=== PATIENT | female | born 1965 | race Asian ===

== ENCOUNTER 2016-11-03 20:01 | Emergency (ER) | payer MEDICAID ==
[~2016-11-03] VITALS: Ht 160 cm; Wt 83.9 kg
[~2016-11-03 20:01] MED LIST: ADVAIR 100-501 EACH INH; ALBUTEROL SULF8.5 GM INH; AMITRIPTYLINE H25 MG ORAL; AMOXICILLIN500 MG ORAL; AZITHROMYCIN250 MG ORAL; BACTRIM DS TAB1 EAC1 ORAL; BENADRYL25 M3 PO; BENADRYL25 MG ORAL; CLINDAMYCIN HC300 MG ORAL; CYCLOBENZAPRINE10 MG ORAL; DEXAMETHASONE2 MG PO; DOXYCYCLINE MO100 MG PO; FLONASE1 SPRAYS; GLUCOTROL5 MG ORAL; HYDROCODON-ACE1 EA15 ORAL; IBUPROFEN600 MG ORAL; KEFLEX500 MG ORAL; KENALOG 0.1% CR15 GM APPLIC; LOPID600 MG ORAL; METFORMIN HCL500 M1 ORAL; NORCO 10/3251 EA ORAL; NORCO 5-325 TA1 EAC1 ORAL; NORCO 5-325 TA1 EACH ORAL; PREDNISONE20 MG ORAL; PROAIR HFA8.5 GM INH; RANITIDINE HCL150 MG ORAL; ROBITUSSIN COU118 M4 PO; TESSALON PERLE100 M2 ORAL; VALIUM5 MG ORAL; VIBRAMYCIN100 MG ORAL; VICODIN 5-5001 EACH ORAL; VICODIN ES 7.51 EACH ORAL
[2016-11-03 20:25] VITALS: BP 157/94
[2016-11-03] MEDS ORDERED: Ketorolac 30mg Inj IM ONE (21:00)
[2016-11-03 21:28] VITALS: BP 132/89
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
== END 2016-11-03 21:29 | disposition home or self-care (01) ==
LOC: EMR 20:47
DX: G89.21 Chronic pain due to trauma (principal); R51 Headache; E11.9 Type 2 diabetes mellitus without complications
CPT/HCPCS: 96372; 99283; J1885

== ENCOUNTER 2017-03-09 20:59 | Emergency (ER) | payer MEDICAID ==
[~2017-03-09] VITALS: Ht 160 cm; Wt 83.9 kg
[2017-03-09 21:15] VITALS: BP 131/74
--- NOTE | 2017-03-09 21:21 | Emergency Room Report ---
History of Present Illness General Chief Complaint: Sore Throat Source: Patient Present Illness HPI Is a 51-year-old female who presents with chief complaint of sore throat. Onset for last 2 to 3 days. She said that her niece had strep throat. She also has congestion and runny nose. Also has hoarseness of her voice. No fever or chills no nausea vomiting. She has 3 leftover pills of amoxicillin and she took them for the last 2 days. No other complaint. Pain is 7/10. Worse with swallowing. Allergies: Coded Allergies: AMITRIPTYLINE (Verified Allergy, Mild, 05/29/14) SWELLING OF LIPS Patient History Past Medical History: see triage record, old chart reviewed Past Surgical History: other Pertinent Family History: none Social History: Reports: smoking Last Menstrual Period: 02/10/17 Now: No Immunizations: other Reviewed Nursing Documentation: PMH: Agreed, PSxH: Agreed Nursing Documentation-PMH Past Medical History: No History, Except For Hx Hypertension: No Hx Pacemaker: No Hx Asthma: No Hx COPD: No Hx Diabetes: Yes Hx Cancer: No Hx Gastrointestinal Problems: No Hx Dialysis: No Hx Neurological Problems: No Hx Cerebrovascular Accident: No Hx Seizures: No Review of Systems Eye: Reports: nose congestion, Denies: blurred vision, eye pain ENT: Reports: throat pain, Denies: ear pain, nose congestion, throat swelling Respiratory: Denies: cough, shortness of breath Cardiovascular: Denies: chest pain, palpitations Gastrointestinal: Denies: abdominal pain, diarrhea, nausea, vomiting Musculoskeletal: Denies: back pain, joint pain Skin: Denies: rash Neurological: Denies: headache, numbness Endocrine: Denies: increased thirst, increased urine Hematologic/Lymphatic: Denies: easy bruising All Other Systems: negative except mentioned in HPI Physical Exam Vital Signs Date Time Temp Pulse Resp B/P Pulse Ox O2 Delivery O2 Flow Rate FiO2 03/09/17 21:03 98.2 96 17 131/74 100 Room Air vitals normal Sp02 EP Interpretation: reviewed, normal General Appearance: well appearing, no apparent distress, alert Head: normocephalic, atraumatic Eyes: bilateral eye EOMI, bilateral eye PERRL ENT: hearing grossly normal, normal pharynx Neck: full range of motion, supple, no meningismus Respiratory: chest non-tender, lungs clear, normal breath sounds Cardiovascular #1: regular rate, rhythm, no murmur Gastrointestinal: normal bowel sounds, non tender, no mass, no organomegaly, no bruit, non-distended Musculoskeletal: back normal, gait/station normal, normal range of motion Psychiatric: mood/affect normal Skin: warm/dry Medical Decision Making Diagnostic Impression: Primary Impression: Pharyngitis ER Course Patient present with a viral illness. No evidence of strep throat. No evidence of retropharyngeal abscess, peritonsillar abscess or Paramjit angina. She has no trismus. We'll discharge home. Last Vital Signs Date Time Temp Pulse Resp B/P Pulse Ox O2 Delivery O2 Flow Rate FiO2 03/09/17 21:15 98.2 17 131/74 100 Room Air 03/09/17 21:03 96 Status: unchanged Disposition: HOME, SELF-CARE Condition: Stable Patient Instructions: Sore Throat Additional Instructions: followup with your DrMagdalena in 7 days. Return if worse. DIANA DUARTE M.D. Mar 09, 2017 21:21
[2017-03-09 21:25] VITALS: BP 131/74
== END 2017-03-09 21:25 | disposition home or self-care (01) ==
LOC: EMR 21:25
DX: J02.9 Acute pharyngitis, unspecified (principal); E11.9 Type 2 diabetes mellitus without complications; Z88.8 Allergy status to other drugs, medicaments and biological substances
CPT/HCPCS: 99282

== ENCOUNTER 2017-06-19 23:27 | Emergency (ER) | payer MEDICAID ==
[~2017-06-19] VITALS: Ht 160 cm; Wt 8.2 kg
[2017-06-20 00:56] VITALS: BP 152/83
[2017-06-20] MEDS ORDERED: AMOXICILLIN500 MG ORAL (01:05)
[2017-06-20 01:12] VITALS: BP 148/82
--- NOTE | 2017-06-20 03:12 | Emergency Room Report ---
History of Present Illness General Chief Complaint: Sore Throat Source: Patient Present Illness HPI 51-year-old female presents to ED today of sore throat and bodyaches x3 days. Pain is throbbing, 8/10, nonradiating. Worse with swallowing. States that many people at her work have the same symptoms. Denies fevers or chills. Denies chest pain shortness of breath. No other aggravating relieving factors. Denies any other associated symptoms Allergies: Coded Allergies: AMITRIPTYLINE (Verified Allergy, Mild, 05/29/14) SWELLING OF LIPS Patient History Past Medical History: DM Past Surgical History: none Pertinent Family History: none Social History: Denies: smoking, alcohol use, drug use Now: No Immunizations: UTD Reviewed Nursing Documentation: PMH: Agreed, PSxH: Agreed Nursing Documentation-PMH Hx Hypertension: No Hx Pacemaker: No Hx Asthma: No Hx COPD: No Hx Diabetes: Yes Hx Cancer: No Hx Gastrointestinal Problems: No Hx Dialysis: No Hx Neurological Problems: No Hx Cerebrovascular Accident: No Hx Seizures: No Review of Systems All Other Systems: negative except mentioned in HPI Physical Exam Vital Signs Date Time Temp Pulse Resp B/P (MAP) Pulse Ox O2 Delivery O2 Flow Rate FiO2 06/20/17 00:19 98.4 73 16 152/83 97 Room Air Sp02 EP Interpretation: reviewed, normal General Appearance: no apparent distress, alert, GCS 15, non-toxic Head: normocephalic, atraumatic Eyes: bilateral eye normal inspection, bilateral eye PERRL ENT: hearing grossly normal, no angioedema, normal voice, TMs + canals normal, pharyngeal erythema Neck: full range of motion, supple/symm/no masses Respiratory: chest non-tender, lungs clear, normal breath sounds, speaking full sentences Cardiovascular #1: regular rate, rhythm, no edema Cardiovascular #2: 2+ carotid (R), 2+ carotid (L), 2+ radial (R), 2+ radial (L) , 2+ dorsalis pedis (R), 2+ dorsalis pedis (L) Gastrointestinal: normal bowel sounds, non tender, soft, non-distended, no guarding, no rebound Rectal: deferred Genitourinary: normal inspection, no CVA tenderness Musculoskeletal: back normal, gait/station normal, normal range of motion, non- tender Neurologic: alert, oriented x3, responsive, motor strength/tone normal, sensory intact, speech normal Psychiatric: judgement/insight normal, memory normal, mood/affect normal, no suicidal/homicidal ideation Reflexes: 3+ bicep (R), 3+ bicep (L), 3+ tricep (R), 3+ tricep (L), 3+ knee (R) , 3+ knee (L) Skin: normal color, no rash, warm/dry, well hydrated Lymphatic: no adenopathy Medical Decision Making Diagnostic Impression: Primary Impression: Pharyngitis Qualified Codes: J02.9 - Acute pharyngitis, unspecified ER Course Hospital Course 51-year-old female presents to ED complaining of sore throat Differential diagnoses include: URI, pharyngitis, otitis media Clinical course Patient placed on stretcher. After initial history, physical exam reveals a middle aged female in no acute distress. Bilateral TM unremarkable. There is pharyngeal erythema and multiple papules. w/o tonsillar exudates. No lymphadenopathy. Clinical findings consistent with pharyngitis. Reassurance given to parents Diagnosis - pharyngitis Stable and discharged home with prescriptions for amoxicillin. Instructed to followup with PMD. return to ED if symptoms recur or worsen Last Vital Signs Date Time Temp Pulse Resp B/P (MAP) Pulse Ox O2 Delivery O2 Flow Rate FiO2 06/20/17 01:12 18 148/82 98 Room Air 06/20/17 00:56 98.4 73 Status: improved Disposition: HOME, SELF-CARE Condition: Stable Scripts Amoxicillin* (AMOXIL*) 500 Mg Capsule 500 MG ORAL THREE TIMES A DAY, #21 CAP Prov: PASHA ZHANG M.D. 06/20/17 Referrals: [facility] (PCP) Patient Instructions: Pharyngitis, Isdr-ds-Opht PASHA ZHANG M.D. Jun 20, 2017 03:12
== END 2017-06-20 01:10 | disposition home or self-care (01) ==
LOC: EMR 23:51
DX: J02.9 Acute pharyngitis, unspecified (principal); E11.9 Type 2 diabetes mellitus without complications
CPT/HCPCS: 99283

== ENCOUNTER 2017-07-25 13:36 | Emergency (ER) | payer MEDICAID ==
[~2017-07-25] VITALS: Ht 160 cm; Wt 84.8 kg
[2017-07-25 13:38] VITALS: BP 137/82
[2017-07-25] MEDS ORDERED: Albuterol ud Inhalation HHN ONE (14:00)
[2017-07-25] MEDS ORDERED: Ipratropium 0.02% Inh Soln 2.5ml UD HHN ONE (14:00)
[2017-07-25] MEDS ORDERED: ZITHROMAX250 MG ORAL (15:19)
[2017-07-25] MEDS ORDERED: PREDNISONE20 MG ORAL (15:19)
[2017-07-25] MEDS ORDERED: ROBITUSSIN COU237 M1 PO (15:19)
[2017-07-25 15:30] VITALS: BP 137/82
--- NOTE | 2017-07-25 17:17 | Emergency Room Report ---
History of Present Illness General Chief Complaint: General Complaint Source: Patient Present Illness [facility] The patient is a 51-year-old female presenting for productive cough, subjective fevers, and a feeling of chest tightness for the past 2 weeks. She admits to a history of smoking and chronic bronchitis. She denies any recent travel or sick contacts. She denies any current pain. She states that she has albuterol at home which has not been helping. She denies any other symptoms including N, V, CP, dizziness, rash Allergies: Coded Allergies: AMITRIPTYLINE (Verified Allergy, Mild, 05/29/14) SWELLING OF LIPS Patient History Past Medical History: see triage record Pertinent Family History: none Last Menstrual Period: 07/23/17 Now: No Reviewed Nursing Documentation: PMH: Agreed, PSxH: Agreed Nursing Documentation-PMH Hx Hypertension: No Hx Pacemaker: No Hx Asthma: No Hx COPD: No Hx Diabetes: Yes Hx Cancer: No Hx Gastrointestinal Problems: No Hx Dialysis: No Hx Cerebrovascular Accident: No Hx Seizures: No Review of Systems All Other Systems: negative except mentioned in HPI Physical Exam Vital Signs Date Time Temp Pulse Resp B/P (MAP) Pulse Ox O2 Delivery O2 Flow Rate FiO2 07/25/17 13:38 98.2 71 17 137/82 97 Room Air 07/25/17 14:39 21 Sp02 EP Interpretation: reviewed, normal General Appearance: no apparent distress, alert, GCS 15, non-toxic Head: normocephalic, atraumatic Eyes: bilateral eye normal inspection, bilateral eye PERRL ENT: hearing grossly normal, normal pharynx, no angioedema, normal voice Neck: full range of motion, supple/symm/no masses Respiratory: chest non-tender, lungs clear, normal breath sounds, speaking full sentences, wheezing - bilat diffuse Cardiovascular #1: regular rate, rhythm, no edema Musculoskeletal: back normal, gait/station normal, normal range of motion, non- tender Neurologic: alert, oriented x3, responsive, motor strength/tone normal, sensory intact, speech normal Psychiatric: judgement/insight normal, memory normal, mood/affect normal, no suicidal/homicidal ideation Skin: normal color, no rash, warm/dry, well hydrated Lymphatic: no adenopathy Medical Decision Making PA Attestation Dr. Steel is my supervising physician. Patient management was discussed with my supervising physician Diagnostic Impression: Primary Impression: Atypical pneumonia ER Course The patient is a 51-year-old female presenting for productive cough, subjective fevers, and a feeling of chest tightness for the past 2 weeks Differential diagnoses considered but not limited to: Asthma exacerbation, bronchitis, pneumonia Physical exam: Vitals within normal limits. No apparent distress HEENT exam is unremarkable Lungs: Diffuse wheezing bilat. Chest is nontender. No respiratory distress. No accessory muscle use. The patient was given a breathing treatment and is feeling much better. Lungs sounds have improved CXR unremarkable Patient is discharged home with a prescription for steroids, cough medication, and abx and will followup with PMD. ER precautions are given the patient will be treated with antibiotics due to COPD with subjective fevers and length of symptoms. Chest X-Ray Diagnostic Results Chest X-Ray Diagnostic Results : Chest X-Ray Ordered: Yes # of Views/Limited/Complete: 1 View Indication: Other - cough EP Interpretation: Yes PA Xray: Interpretation reviewed, by supervising MD, and agrees with findings. Interpretation: no consolidation, no effusion, no pneumothorax, no acute cardiopulmonary disease Impression: No acute disease Electronically Signed by: Micheal Saavedra PA-C Last Vital Signs Date Time Temp Pulse Resp B/P (MAP) Pulse Ox O2 Delivery O2 Flow Rate FiO2 07/25/17 15:30 98.2 18 137/82 100 Room Air 21 07/25/17 14:59 90 Status: improved Disposition: HOME, SELF-CARE Condition: Improved Scripts Prednisone* (PREDNISONE*) 20 Mg Tablet 20 MG ORAL DAILY, #5 TAB 0 Refills Prov: TERZIAN,MICHEAL P.A. 07/25/17 Guaifenesin/Dextromethorphan (ROBITUSSIN COUGH-CHEST DM LIQ) 237 Ml Liquid 10 ML PO Q4HR, #237 ML Prov: TERZIANMICHEAL P.A. 07/25/17 Azithromycin* (ZITHROMAX*) 250 Mg Tablet 250 MG ORAL DAILY, #6 TAB 0 Refills Take two tables once daily for 1 day, then one tablet once daily for 4 days. Prov: TERZIANMICHEAL P.A. 07/25/17 Patient Instructions: Chronic Obstructive Pulmonary Disease Additional Instructions: I discussed my findings with the patient. All questions and concerns have been answered. Treatment and medication compliance have been addressed. I advised the patient that they need to follow up with PMD in 3-5 days. Return to ED if pain remains or worsens, cough worsens or remains, you notice blood in your sputum, you notice wheezing, you experience a fever, or if needed for any reason. Patient verbalized understanding of discharge instructions. MICHEAL SAAVEDRA Jul 25, 2017 17:17
== END 2017-07-25 15:30 | disposition home or self-care (01) ==
LOC: EMR 13:56
DX: J18.9 Pneumonia, unspecified organism (principal); E11.9 Type 2 diabetes mellitus without complications; Z88.8 Allergy status to other drugs, medicaments and biological substances
CPT/HCPCS: 94640; 94664; 99284

== ENCOUNTER 2017-11-07 21:29 | Emergency (ER) | payer MEDICAID ==
[~2017-11-07] VITALS: Ht 160 cm; Wt 82.6 kg
[~2017-11-07 21:29] MED LIST changes: +ROBITUSSIN COU237 M1 PO; +ZITHROMAX250 MG ORAL
[2017-11-07 22:00] VITALS: BP 137/89
[2017-11-07] MEDS ORDERED: Norco 5mg/325mg tab ORAL ONE (22:45)
[2017-11-07] MEDS ORDERED: HYDROCODON-ACE1 EA15 ORAL (23:38)
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
[2017-11-07 23:50] VITALS: BP 137/89
--- NOTE | 2017-11-08 11:42 | Diagnostic Imaging Report ---
Indication: Dyspnea. Trauma Comparison: 01/10/2014 2 views of the chest obtained. Findings: Cardiomediastinal silhouette and pulmonary vascularity are within normal limits for age. The diaphragmatic contour is smooth and costophrenic angles are sharp. No pleural effusions are identified. The bones are osteopenic. Impression: No acute disease
== END 2017-11-07 23:50 | disposition home or self-care (01) ==
LOC: EMR 22:20
DX: S20.219A Contusion of unspecified front wall of thorax, initial encounter (principal); S16.1XXA Strain of muscle, fascia and tendon at neck level, initial encounter; M54.5 Low back pain; V43.52XA Car driver injured in collision with other type car in traffic accident, initial encounter; Y92.410 Unspecified street and highway as the place of occurrence of the external cause; E11.9 Type 2 diabetes mellitus without complications; Z88.8 Allergy status to other drugs, medicaments and biological substances
CPT/HCPCS: 71046; 99283

== ENCOUNTER 2018-03-10 18:52 | Emergency (ER) | payer MEDICAID ==
[~2018-03-10] VITALS: Ht 160 cm; Wt 83.9 kg
[2018-03-10 19:30] VITALS: BP 133/89
[2018-03-10] MEDS ORDERED: IBUPROFEN600 MG ORAL (21:02)
[2018-03-10] MEDS ORDERED: ROBAXIN-750750 MG PO (21:02)
[2018-03-10 21:05] VITALS: BP 133/89
--- NOTE | 2018-03-10 22:44 | Emergency Room Report ---
History of Present Illness General Chief Complaint: Pain Source: Patient Present Illness HPI 52-year-old female presents ED complaining of throat pain and neck pain 3 days. Pain is throbbing, 8 out of 10, nonradiating. Denies any fevers or chills. Nose runny nose and cough. Denies earache. Denies headache or neck stiffness. No other aggravating relieving factors. Denies any other associated symptoms Allergies: Coded Allergies: AMITRIPTYLINE (Verified Allergy, Mild, 05/29/14) SWELLING OF LIPS Patient History Past Medical History: DM Past Surgical History: none Pertinent Family History: none Social History: Denies: smoking, alcohol use, drug use Now: No Immunizations: UTD Reviewed Nursing Documentation: PMH: Agreed; PSxH: Agreed Nursing Documentation-PMH Past Medical History: No History, Except For Hx Hypertension: No Hx Pacemaker: No Hx Asthma: No Hx COPD: No Hx Diabetes: Yes Hx Cancer: No Hx Gastrointestinal Problems: No Hx Dialysis: No Hx Cerebrovascular Accident: No Hx Seizures: No Review of Systems All Other Systems: negative except mentioned in HPI Physical Exam Vital Signs Date Time Temp Pulse Resp B/P (MAP) Pulse Ox O2 Delivery O2 Flow Rate FiO2 03/10/18 19:02 98.3 70 20 133/89 96 Room Air 98.2 Sp02 EP Interpretation: reviewed, normal General Appearance: no apparent distress, alert, GCS 15, non-toxic Head: normocephalic Eyes: bilateral eye normal inspection, bilateral eye PERRL ENT: hearing grossly normal, normal pharynx, no angioedema, normal voice, TMs + canals normal Neck: normal inspection, no bony tend, tender lateral Respiratory: normal inspection Cardiovascular #1: normal inspection Gastrointestinal: normal inspection Rectal: deferred Genitourinary: no CVA tenderness Musculoskeletal: normal inspection Neurologic: alert, oriented x3, responsive, motor strength/tone normal, sensory intact, speech normal Psychiatric: normal inspection Skin: normal inspection Lymphatic: normal inspection Medical Decision Making Diagnostic Impression: Primary Impression: Neck strain Qualified Codes: S16.1XXA - Strain of muscle, fascia and tendon at neck level , initial encounter Additional Impression: Pharyngitis ER Course Hospital Course 52-year-old female presents to ED complaining of sore throat + neck pain Differential diagnoses include: URI, pharyngitis, otitis media Clinical course Patient placed on stretcher. After initial history, physical exam reveals a female in no acute distress. Bilateral TM unremarkable. There is minimal pharyngeal erythema w/o tonsillar exudates. No lymphadenopathy. No C-spine tenderness. There is some paraspinal tenderness to the neck. Consistent with muscle strain Clinical findings consistent with pharyngitis. likely viral. no abx indicated Diagnosis - pharyngitis, neck strain Stable and discharged home with prescriptions for motrin, robaxin. Instructed to followup with PMD. return to ED if symptoms recur or worsen Last Vital Signs Date Time Temp Pulse Resp B/P (MAP) Pulse Ox O2 Delivery O2 Flow Rate FiO2 03/10/18 21:05 70 20 133/89 96 Room Air 03/10/18 19:30 98.2 98.2 Status: improved Disposition: HOME, SELF-CARE Condition: Stable Scripts Methocarbamol* (ROBAXIN-750*) 750 Mg Tablet 750 MG PO TID, #21 TAB 0 Refills Prov: Kerwin Steel MD 03/10/18 Ibuprofen* (MOTRIN*) 600 Mg Tablet 600 MG ORAL Q8H PRN for For Pain, #30 TAB 0 Refills Prov: Kerwin Steel MD 03/10/18 Patient Instructions: Cervical Strain and Sprain With Rehab-[facility] Kerwin Steel MD Mar 10, 2018 22:44
== END 2018-03-10 21:05 | disposition home or self-care (01) ==
LOC: EMR 21:00
DX: S16.1XXA Strain of muscle, fascia and tendon at neck level, initial encounter (principal); X58.XXXA Exposure to other specified factors, initial encounter; Y92.9 Unspecified place or not applicable; J02.9 Acute pharyngitis, unspecified; E11.9 Type 2 diabetes mellitus without complications; Z88.1 Allergy status to other antibiotic agents
CPT/HCPCS: 99284

== ENCOUNTER 2018-03-28 06:25 | Emergency (ER) | payer MEDICAID ==
[~2018-03-28] VITALS: Ht 160 cm; Wt 83.9 kg
[~2018-03-28 06:25] MED LIST changes: +ROBAXIN-750750 MG PO
[2018-03-28 06:40] VITALS: BP 142/99
[2018-03-28] MEDS ORDERED: Ketorolac 30mg Inj IM ONE (07:00)
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
[2018-03-28] MEDS ORDERED: NORCO 5-325 TA1 EACH ORAL (07:57)
[2018-03-28 08:01] VITALS: BP 142/99
--- NOTE | 2018-03-28 11:03 | Diagnostic Imaging Report ---
EXAM: XR Left Shoulder Complete, 2 or More Views CLINICAL HISTORY: PAIN TECHNIQUE: Two or more views of the left shoulder. COMPARISON: No relevant prior studies available. FINDINGS: Bones/joints: No visible acute displaced fracture or dislocation. The left glenohumeral and acromioclavicular joints appear within normal limits. Coracoclavicular and subacromial spaces appear unremarkable. Soft tissues: Unremarkable. No radiodense foreign bodies. No soft tissue gas lucencies. IMPRESSION: No acute findings.
--- NOTE | 2018-03-29 13:16 | Diagnostic Imaging Report ---
Indication: Pain Technique: XRAY C Spine 2-3v Comparison: None Findings: There is mild straightening of the cervical lordosis. No evidence suggest spondylolisthesis. No abnormal cervical curvature on frontal view. The anterior and lateral lateral odontoid intervals within normal limits. No evidence to suggest dens fracture. Vertebral body heights are maintained; is no evidence of compression fracture. There is multilevel degenerative change of the cervical spine manifested by disc space narrowing, endplate sclerosis, osteophyte formation and facet arthropathy. These findings are most pronounced at C5-C6 and C6-C7. No prevertebral soft tissue abnormality is appreciated. Imaged lung apices are grossly clear. No radiopaque foreign body identified. IMPRESSION: No acute fracture. Degenerative change, most pronounced in the lower cervical spine. Consider further evaluation with MRI as clinically indicated.
--- NOTE | 2018-03-30 00:39 | Cardiology Report ---
APPROVED REPORT EKG Measurement Heart [id number] Sinus rhythm Normal ECG
== END 2018-03-28 08:03 | disposition home or self-care (01) ==
LOC: EMR 06:55
DX: M54.12 Radiculopathy, cervical region (principal); S46.912A Strain of unspecified muscle, fascia and tendon at shoulder and upper arm level, left arm, initial encounter; X58.XXXA Exposure to other specified factors, initial encounter; Y92.9 Unspecified place or not applicable; E11.9 Type 2 diabetes mellitus without complications; Z88.8 Allergy status to other drugs, medicaments and biological substances
CPT/HCPCS: 72040; 73030; 93005; 96372; 99284; J1885

== ENCOUNTER 2018-07-21 23:46 | Emergency (ER) | payer MEDICAID ==
[~2018-07-21] VITALS: Ht 160 cm; Wt 83.9 kg
[2018-07-22] VITALS: BP 124/90
[2018-07-22] MEDS ORDERED: IBUPROFEN600 MG ORAL (00:27)
--- NOTE | 2018-07-22 00:27 | Emergency Room Report ---
History of Present Illness General Chief Complaint: Pain Source: Patient Present Illness HPI Is a 52-year-old female with a history of diabetes. She presents with chief complaint bilateral feet pain, right greater than left. Onset for last couple weeks. Worse with standing. She stands at work constantly. Lots a walking. No trauma. Pain is throbbing in nature. Better with rest. Pain is 8 out of 10. No fever or chills. No drainage. No other complaint. Allergies: Coded Allergies: AMITRIPTYLINE (Verified Allergy, Mild, 05/29/14) SWELLING OF LIPS Patient History Past Medical History: see triage record, old chart reviewed Past Surgical History: other Pertinent Family History: none Social History: Denies: smoking Last Menstrual Period: 07/15/2018 Now: No : 4 Para: 3 Immunizations: other Reviewed Nursing Documentation: PMH: Agreed; PSxH: Agreed Nursing Documentation-PMH Past Medical History: No History, Except For Hx Hypertension: No Hx Pacemaker: No Hx Asthma: No Hx COPD: No Hx Diabetes: Yes Hx Cancer: No Hx Gastrointestinal Problems: No Hx Dialysis: No Hx Cerebrovascular Accident: No Hx Seizures: No Review of Systems Eye: Denies: eye pain, blurred vision ENT: Denies: ear pain, nose congestion, throat swelling Respiratory: Denies: cough, shortness of breath Cardiovascular: Denies: chest pain, palpitations Gastrointestinal: Denies: abdominal pain, diarrhea, nausea, vomiting Musculoskeletal: Reports: muscle pain; Denies: back pain, joint pain Skin: Denies: rash Neurological: Denies: headache, numbness Endocrine: Denies: increased thirst, increased urine Hematologic/Lymphatic: Denies: easy bruising All Other Systems: negative except mentioned in HPI Physical Exam Vital Signs Date Time Temp Pulse Resp B/P (MAP) Pulse Ox O2 Delivery O2 Flow Rate FiO2 07/21/18 23:53 98.1 83 14 124/90 97 Room Air vitals normal Sp02 EP Interpretation: reviewed, normal General Appearance: well appearing, no apparent distress, alert Head: normocephalic, atraumatic Eyes: bilateral eye PERRL, bilateral eye EOMI ENT: hearing grossly normal, normal pharynx Neck: full range of motion, supple, no meningismus Respiratory: chest non-tender, lungs clear, normal breath sounds Cardiovascular #1: regular rate, rhythm, no murmur Gastrointestinal: normal bowel sounds, non tender, no mass, no organomegaly, no bruit, non-distended Musculoskeletal: back normal, gait/station normal, normal range of motion, tender - Mild tenderness to the sole of both feet. Psychiatric: mood/affect normal Skin: warm/dry Medical Decision Making Diagnostic Impression: Primary Impression: Plantar fasciitis, bilateral ER Course Patient with bilateral plantar fasciitis. No evidence of septic joint or infection. We'll discharge home. Last Vital Signs Date Time Temp Pulse Resp B/P (MAP) Pulse Ox O2 Delivery O2 Flow Rate FiO2 07/21/18 23:53 98.1 83 14 124/90 97 Room Air Status: unchanged Disposition: HOME, SELF-CARE Condition: Stable Scripts Ibuprofen* (MOTRIN*) 600 Mg Tablet 600 MG ORAL THREE TIMES A DAY, #30 TAB 0 Refills Prov: Yovany Parada MD 07/22/18 Additional Instructions: Elevate feet. Follow-up with your doctor in 7 days. Return if worse. Yovany Parada MD Jul 22, 2018 00:27
[2018-07-22 00:40] VITALS: BP 136/86
== END 2018-07-22 00:36 | disposition home or self-care (01) ==
LOC: EMR 23:59
DX: M72.2 Plantar fascial fibromatosis (principal); E11.9 Type 2 diabetes mellitus without complications; Z88.1 Allergy status to other antibiotic agents
CPT/HCPCS: 99282

== ENCOUNTER 2018-11-08 10:49 | Emergency (ER) | payer MEDICAID ==
[~2018-11-08] VITALS: Ht 154.9 cm; Wt 72.6 kg
--- NOTE | 2018-11-08 10:59 | NUR ---
ED Nurse Note: Pt fell on ground level 2 days ago while carrying heavy stuffs, no LOC, no head trauma. Pain 10/10 pooja. AOx4, VSS. Will cont to monitor.
[2018-11-08] MEDS ORDERED: NKM (11:00)
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
[2018-11-08] MEDS ORDERED: CYCLOBENZAPRINE10 MG ORAL (11:25)
[2018-11-08] MEDS ORDERED: IBUPROFEN600 MG ORAL (11:25)
[2018-11-08] MEDS ORDERED: Ketorolac 60mg Inj IM ONE (11:30)
[2018-11-08 12:04] VITALS: BP 133/78
--- NOTE | 2018-11-08 12:05 | NUR ---
ED Nurse Note: Patient is being discharged from medical care with prescription. Awake, alert and oriented x3. ID band were removed. Patient ambulated out with all personal belongings with steady gait.
== END 2018-11-08 12:06 | disposition home or self-care (01) ==
LOC: EMR 11:27
DX: M25.552 Pain in left hip (principal); M25.551 Pain in right hip; G89.29 Other chronic pain; Z88.1 Allergy status to other antibiotic agents
CPT/HCPCS: 96372; 99283

== ENCOUNTER 2018-12-09 00:24 | Emergency (ER) | payer MEDICAID ==
[~2018-12-09] VITALS: Ht 160 cm; Wt 81.2 kg
[~2018-12-09 00:24] MED LIST changes: +NKM
--- NOTE | 2018-12-09 00:36 | NUR ---
ED Nurse Note: pt came to ed c/o of right knee and heel pain for 1 month pt denies trauma to area
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
[2018-12-09] MEDS ORDERED: IBUPROFEN600 MG ORAL (01:07)
[2018-12-09 01:15] VITALS: BP 128/87
--- NOTE | 2018-12-09 01:16 | NUR ---
ED Nurse Note: pt cleared to be d/c per ERMD, pt d/c & aftercare instruction provided w/ prescription, pt education done via discussion and handout, pt advised to follow up with pcp/emissions repair technician or return to ed if sx worsen or new sx develop, pt verbalized understanding and agrees with plan, left w/ all belongings, wrist band removed, vss, ambultory w/ steady gait.
== END 2018-12-09 01:17 | disposition home or self-care (01) ==
LOC: EMR 00:39
DX: M77.31 Calcaneal spur, right foot (principal); M25.561 Pain in right knee; G89.29 Other chronic pain; Z88.8 Allergy status to other drugs, medicaments and biological substances; E78.00 Pure hypercholesterolemia, unspecified
CPT/HCPCS: 99283

== ENCOUNTER 2019-03-31 10:05 | Emergency (ER) | payer MEDICAID ==
[~2019-03-31] VITALS: Ht 160 cm; Wt 81.6 kg
[2019-03-31 10:19] VITALS: BP 131/84
--- NOTE | 2019-03-31 10:20 | NUR ---
ED Nurse Note: Pt came in from home due to R 1st toe swelling after she got her pedicure and medical technologist hematology was cutting her ingrown toenail. Pain 9/10 pooja. AOx4, VSS. Will cont to monitor.
[2019-03-31] MEDS ORDERED: CEPHALEXIN500 MG ORAL (10:21)
[2019-03-31 10:25] VITALS: BP 131/84
--- NOTE | 2019-03-31 10:25 | NUR ---
ER DISCHARGE NOTE: Patient is cleared to be discharged per ERMD, pt is aox4, on room air, with stable vital signs. pt was given dc and prescription instructions, pt was able to verbalize understanding, pt id band removed. pt is able to ambulate with steady gait. pt took all belongings.
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
== END 2019-03-31 10:25 | disposition home or self-care (01) ==
LOC: EMR 10:20
DX: L03.031 Cellulitis of right toe (principal); Z88.8 Allergy status to other drugs, medicaments and biological substances; E78.00 Pure hypercholesterolemia, unspecified; E11.9 Type 2 diabetes mellitus without complications
CPT/HCPCS: 99282

== ENCOUNTER 2019-04-15 19:35 | Emergency (ER) | payer MEDICAID ==
[~2019-04-15] VITALS: Ht 160 cm; Wt 83.5 kg
[~2019-04-15 19:35] MED LIST changes: +CEPHALEXIN500 MG ORAL
--- NOTE | 2019-04-15 19:49 | NUR ---
ER Nurse Note: Pt ambulated with steady gait; coming from home c/o RT heel pain when ambulating. Pt stated pain started one month ago and is treated with Motrin. Pain got worse 04/15. Cap refill less than 3 sec, no discomfort when moving ankle joint, skin intact. Will conitinue to gilberto.
[2019-04-15] MEDS ORDERED: NAPROXEN500 M1 ORAL (21:03)
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
[2019-04-15 21:08] VITALS: BP 147/86
--- NOTE | 2019-04-15 21:08 | NUR ---
ER Nurse Note: Pt seen, treated, medically cleared for discharge by ERMD. Discharge instuctions and prescriptions given with repeat verbalization by pt. Emphasized to follow up with primay care provider; take whole course of medication. Explained each medication. All orders completed per ERMD orders. X-ray taken, results explained by ER PA. Pt a&ox4, VSS, no signs of distress. ID band removed. All questions answered per pt's questions. Pt left with all belongings, left with own transportation.
--- NOTE | 2019-04-16 10:41 | Diagnostic Imaging Report ---
Indication: Right foot pain Technique: 3 views right foot Comparison: none Findings: There is mild hammertoe deformity of the second through fifth digits. No acute fractures. No dislocations. There are plantar and calcaneal spurs. Impression: No acute process. Findings as noted
== END 2019-04-15 21:15 | disposition home or self-care (01) ==
LOC: EMR 21:15
DX: M77.31 Calcaneal spur, right foot (principal); M79.671 Pain in right foot; Z88.8 Allergy status to other drugs, medicaments and biological substances; E78.00 Pure hypercholesterolemia, unspecified; E11.9 Type 2 diabetes mellitus without complications
CPT/HCPCS: 99283

== ENCOUNTER 2019-05-04 23:17 | Emergency (ER) | payer MEDICAID ==
[~2019-05-04] VITALS: Ht 160 cm; Wt 78.9 kg
[~2019-05-04 23:17] MED LIST changes: +NAPROXEN500 M1 ORAL
[2019-05-04 23:44] VITALS: BP 152/81
--- NOTE | 2019-05-04 23:45 | NUR ---
ED Nurse Note: Patient walked in to ER c/o sore throat x3 days. AAO x4, VSS at thios time.
[2019-05-04] MEDS ORDERED: IBUPROFEN600 MG ORAL (23:58)
[2019-05-04] MEDS ORDERED: ZITHROMAX250 MG ORAL (23:58)
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
[2019-05-05 00:08] VITALS: BP 152/81
--- NOTE | 2019-05-05 00:09 | NUR ---
ED Nurse Note: Pt cleared by health care Provider for discharge. DC instructions/prescription was given and explained to pt and verbalized understanding of teachings. All medical deviecs such as ID band removed. Pt is AAO x4, ambulatory and left with all personal belongings.
== END 2019-05-05 00:05 | disposition home or self-care (01) ==
LOC: EMR 23:50
DX: J02.9 Acute pharyngitis, unspecified (principal); E11.9 Type 2 diabetes mellitus without complications; Z88.8 Allergy status to other drugs, medicaments and biological substances; E78.00 Pure hypercholesterolemia, unspecified
CPT/HCPCS: 99282

== ENCOUNTER → 2019-09-07 | Emergency (ER) | payer MEDICAID ==
[~2019-09-07] VITALS: Ht 157.5 cm; Wt 79.4 kg
[~2019-09-07] MED LIST changes: +AUGMENTIN 875-1 EAC1 ORAL
[2019-09-07 17:25] VITALS: BP 141/89
--- NOTE | 2019-09-07 17:26 | NUR ---
ED Nurse Note:pt. came with sore throat, no fever reported
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
--- NOTE | 2019-09-07 17:55 | NUR ---
ED Nurse Note: Pt is cleared to be d/c per ER provider, pt discharge and aftercare instruction provided w/ prescription, pt education done via discussion and handout, pt advised to follow up with pcp or return to ed if changes in condition, pt verbalized understanding, vss, ambulatory w/ steady gait, left w/ all belongings.
== END | disposition home or self-care (01) ==
LOC: EMR 18:04
DX: J02.0 Streptococcal pharyngitis (principal); Z88.8 Allergy status to other drugs, medicaments and biological substances; E78.00 Pure hypercholesterolemia, unspecified; E11.9 Type 2 diabetes mellitus without complications
CPT/HCPCS: 99282

== ENCOUNTER 2020-07-30 04:17 | Emergency (ER) | payer MEDICAID ==
[~2020-07-30] VITALS: Ht 160 cm; Wt 77.1 kg
[~2020-07-30 04:17] MED LIST changes: +IBU800 MG PO
[2020-07-30 04:39] VITALS: BP 128/76
--- NOTE | 2020-07-30 04:39 | NUR ---
ED Nurse Note: pt walked into ED from home c/o cyst/abscess in the outer labia that has been growing for the past 3 days, pt reports discomfort. Pt repoerts she has had an abscess before on the inner thigh. pt denies fever, nausea, vomiting, chills, dysuria. Pt denies bleeding or drainage from abscess.
[2020-07-30] MEDS ORDERED: BACTRIM DS TAB1 EAC1 ORAL (05:12)
[2020-07-30] MEDS ORDERED: IBUPROFEN600 M1 ORAL (05:12)
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
[2020-07-30] MEDS ORDERED: Bactrim-DS 1 tab ORAL ONE (05:15)
[2020-07-30 05:21] VITALS: BP 135/86
== END 2020-07-30 05:21 | disposition home or self-care (01) ==
LOC: EMR 04:40
DX: N75.1 Abscess of Bartholin's gland (principal); E11.9 Type 2 diabetes mellitus without complications; Z79.84 Long term (current) use of oral hypoglycemic drugs; E78.00 Pure hypercholesterolemia, unspecified; Z88.8 Allergy status to other drugs, medicaments and biological substances
CPT/HCPCS: 56420; Z7502; 99283